=== PATIENT | male | born 1960 | race Caucasian/White ===

== ENCOUNTER → 2023-12-15 | Outpatient (CLI) | payer MEDICARE | END | disposition home or self-care (01) | LOC: RESCLI 14:48 | PROVIDERS: ATTEND Student in an Organized Health Care Education/Training Program | DX: E11.9 Type 2 diabetes mellitus without complications (principal); I10 Essential (primary) hypertension; E03.9 Hypothyroidism, unspecified; E23.0 Hypopituitarism; M79.2 Neuralgia and neuritis, unspecified; I48.91 Unspecified atrial fibrillation; D68.51 Activated protein C resistance; Z79.899 Other long term (current) drug therapy ==